=== PATIENT | male | born 1960 | race Caucasian/White ===

== ENCOUNTER 2019-04-21 08:43 | Inpatient (IN) | payer MEDICAID, OTHER, SELFPAY ==
[~2019-04-21] VITALS: Ht 188 cm; Wt 120.7 kg
--- NOTE | 2019-04-21 09:24 | NUR ---
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
[2019-04-21] MEDS ORDERED: SERT-238 PO (09:39)
[2019-04-21] MEDS ORDERED: MIRT15TA94 PO (09:39)
[2019-04-21] MEDS ORDERED: MELO15TA24 PO (09:39)
--- NOTE | 2019-04-21 09:42 | NUR ---
PT HAS CO OF BILATERAL FOOT PAIN. PT REMOVED SHOES AND SOCK. MALODOROUS. PT FEETS ARE RED AND SWOLLEN, BLISTERS AROUND TOES. PT STATES HE HAS HAD THESE SYMPTOMS FOR 2 WEEKS. PT STATES THEY ARE PAINFUL.
[2019-04-21 09:59] LABS: BASOPHILS # (AUTO) 0.08 x10^3/uL (0-0.1); BASOPHILS % (AUTO) 1 % (0-1); EOSINOPHILS # (AUTO) 0.05 x10^3/uL (0-0.4); EOSINOPHILS % (AUTO) 1 % (1-7); LYMPHOCYTES # (AUTO) 1.68 x10^3/uL (1-3.4); LYMPHOCYTES % (AUTO) 17 % (22-44); MD NO; MEAN CORPUSCULAR HEMOGLOBIN 29.6 pg (27.5-34.5); MEAN CORPUSCULAR HGB CONC 32.9 g/dL (33.2-36.2); MEAN CORPUSCULAR VOLUME 90.1 fL (81-97); MEAN PLATELET VOLUME 8.1 fL (7.4-10.4); MONOCYTES # (AUTO) 0.92 x10^3/uL (0.2-0.8); MONOCYTES % (AUTO) 9 % (2-9); NEUTROPHILS # (AUTO) 7.36 x10^3/uL (1.8-6.8); NEUTROPHILS % (AUTO) 73 % (42-75); PLATELET COUNT 237 x10^3/uL (130-400); RED BLOOD COUNT 4.49 x10^6/uL (4.38-5.82); RED CELL DISTRIBUTION WIDTH 13.7 % (9.4-14.8)
[2019-04-21 10:07] LABS: ALBUMIN 3.3 g/dL (3.4-5.0); ANION GAP 6 mmol/L (5-15); CALCIUM 8.3 mg/dL (8.5-10.1); CHLORIDE 108 mmol/L (98-107); CREATININE 1.29 mg/dL (0.7-1.3)
--- NOTE | 2019-04-21 10:40 | NUR ---
PT IS SOAKING FEET IN BASIN
[2019-04-21] MEDS ORDERED: AMPICILLIN/SULBACTAM 3 GM in SODIUM CHLORIDE 0.9% 100 ML IV ONE (11:00)
--- NOTE | 2019-04-21 11:28 | NUR ---
REPORT TO BARBARA
[2019-04-21] MEDS ORDERED: PHARMACOKINETIC MONITORING MC PRN (12:00)
[2019-04-21] MEDS ORDERED: VANCOMYCIN PMX 1GM/200ML 200 ML IV ONE (12:00)
[2019-04-21] MEDS ORDERED: BISACODYL 10 MG SUPP PR PRN (12:00)
[2019-04-21] MEDS ORDERED: morphine SULFATE 10 MG/ML, 1ML IVPush PRN (12:00)
[2019-04-21] MEDS ORDERED: LABETALOL 5MG/ML, 20ML IVPush PRN (12:00)
[2019-04-21] MEDS ORDERED: VANCOMYCIN PER PHARMACY MC PRN (12:00)
[2019-04-21] MEDS ORDERED: ENALAPRILAT 1.25 MG/ML, 2ML IVPush PRN (12:00)
[2019-04-21] MEDS ORDERED: DOCUSATE 100 MG CAPSULE PO PRN (12:00)
[2019-04-21] MEDS ORDERED: ACETAMINOPHEN 325 MG TABLET PO PRN (12:00)
[2019-04-21] MEDS ORDERED: PHARMACOKINETIC CONSULTATION MC ONE (12:00)
[2019-04-21] MEDS ORDERED: POLYETHYLENE GLYCOL 17 GM PACKET PO PRN (12:00)
[2019-04-21] MEDS ORDERED: GABAPENTIN 300 MG CAPSULE PO PRN (12:00)
[2019-04-21] MEDS ORDERED: ONDANSETRON 2MG/ML, 2ML IVPush PRN (12:00)
[2019-04-21 12:21] VITALS: BP 155/79
[2019-04-21 13:02] VITALS: BP 174/83
[2019-04-21] MEDS: ENOXAPARIN 40 MG/0.4 ML SQ SCH (13:26)
[2019-04-21] MEDS: VANCOMYCIN 2,000 MG in SODIUM CHLORIDE 0.9% 500 ML IV SCH (18:29)
[2019-04-21 18:51] VITALS: BP 125/71
[2019-04-22 01:23] VITALS: BP 135/77
[2019-04-22 05:50] LABS: BASOPHILS # (AUTO) 0.01 x10^3/uL (0-0.1); BASOPHILS % (AUTO) 0 % (0-1); EOSINOPHILS # (AUTO) 0.23 x10^3/uL (0-0.4); EOSINOPHILS % (AUTO) 3 % (1-7); LYMPHOCYTES # (AUTO) 1.45 x10^3/uL (1-3.4); LYMPHOCYTES % (AUTO) 21 % (22-44); MD NO; MEAN CORPUSCULAR HEMOGLOBIN 30.1 pg (27.5-34.5); MEAN CORPUSCULAR HGB CONC 32.5 g/dL (33.2-36.2); MEAN CORPUSCULAR VOLUME 92.7 fL (81-97); MEAN PLATELET VOLUME 8.6 fL (7.4-10.4); MONOCYTES # (AUTO) 0.41 x10^3/uL (0.2-0.8); MONOCYTES % (AUTO) 6 % (2-9); NEUTROPHILS # (AUTO) 4.99 x10^3/uL (1.8-6.8); NEUTROPHILS % (AUTO) 70 % (42-75); PLATELET COUNT 190 x10^3/uL (130-400); RED BLOOD COUNT 4.49 x10^6/uL (4.38-5.82); RED CELL DISTRIBUTION WIDTH 13.8 % (9.4-14.8)
[2019-04-22 06:02] LABS: ALBUMIN 2.8 g/dL (3.4-5.0); ANION GAP 4 mmol/L (5-15); CALCIUM 7.8 mg/dL (8.5-10.1); CHLORIDE 110 mmol/L (98-107)
[2019-04-22 06:07] LABS: ALANINE AMINOTRANSFERASE 21 U/L (12-78); ALKALINE PHOSPHATASE 76 U/L (45-117); BILIRUBIN,TOTAL 0.6 mg/dL (0.2-1.0); CREATININE 0.98 mg/dL (0.7-1.3); TOTAL PROTEIN 6.8 g/dL (6.4-8.2)
[2019-04-22] MEDS: VANCOMYCIN 2,000 MG in SODIUM CHLORIDE 0.9% 500 ML IV SCH ×2 (06:12→17:30)
[2019-04-22 06:55] VITALS: BP 134/80
[2019-04-22] MEDS: ENOXAPARIN 40 MG/0.4 ML SQ SCH (11:52)
[2019-04-22 13:00] VITALS: BP 131/77
[2019-04-22] MEDS: AMPICILLIN/SULBACTAM 3 GM in SODIUM CHLORIDE 0.9% 100 ML IV SCH ×2 (16:39→22:48)
[2019-04-22] MEDS ORDERED: LORazepam 2 MG/ML, 1ML IVPush PRN (17:30)
[2019-04-22] MEDS ORDERED: CALCIUM GLUCONATE 4.6 MEQ in SODIUM CHLORIDE 0.9% 50 ML IV ONE (17:30)
[2019-04-22 18:40] VITALS: BP 126/78
[2019-04-23 01:31] VITALS: BP 118/75
[2019-04-23] MEDS: AMPICILLIN/SULBACTAM 3 GM in SODIUM CHLORIDE 0.9% 100 ML IV SCH ×4 (05:23→23:07)
[2019-04-23 05:45] LABS: INTERNATIONAL NORMALIZED RATIO 1.04 (0.93-1.1); PROTHROMBIN TIME 10.9 Seconds (9.6-11.5)
[2019-04-23 05:49] LABS: ANION GAP 5 mmol/L (5-15); CALCIUM 7.8 mg/dL (8.5-10.1); CHLORIDE 110 mmol/L (98-107); CREATININE 0.94 mg/dL (0.7-1.3)
[2019-04-23] MEDS: VANCOMYCIN 2,000 MG in SODIUM CHLORIDE 0.9% 500 ML IV SCH (06:27)
[2019-04-23 07:10] VITALS: BP 124/75
[2019-04-23] MEDS ORDERED: POTASSIUM PHOSPHATE 44 MEQ in SODIUM CHLORIDE 0.9% 500 ML IV ONE (11:30)
[2019-04-23] MEDS ORDERED: MAGNESIUM SULFATE PMX 2GM/50ML 50 ML IV ONE (11:30)
[2019-04-23 11:35] LABS: HEMOGLOBIN A1C 5.8 % (4.2-6.3)
[2019-04-23] MEDS: ENOXAPARIN 40 MG/0.4 ML SQ SCH (12:00)
[2019-04-23] MEDS ORDERED: MIDAZOLAM 1 MG/ML, 2ML ONE (13:11)
[2019-04-23] MEDS ORDERED: FENTANYL PF 250 MCG/5ML ONE (13:11)
[2019-04-23] MEDS ORDERED: SUCCINYLCHOLINE 20 MG/ML, 10ML ONE (13:28)
[2019-04-23] MEDS ORDERED: PHENYLEPHRINE 10 MG/ML ONE (13:28)
[2019-04-23] MEDS ORDERED: KETOROLAC 30 MG/1 ML ONE (13:28)
[2019-04-23] MEDS ORDERED: ONDANSETRON 2MG/ML, 2ML ONE (13:28)
[2019-04-23] MEDS ORDERED: PROPOFOL 10 MG/ML, 20ML ONE (13:28)
[2019-04-23] MEDS ORDERED: DEXAMETHASONE 4 MG/ML, 1ML ONE (13:28)
[2019-04-23] MEDS ORDERED: hydrALAzine 20 MG/ML, 1ML IV PRN (13:30)
[2019-04-23] MEDS ORDERED: MEPERIDINE/PF 25MG/ML,1ML IVPush PRN (13:30)
[2019-04-23] MEDS ORDERED: ACETAMINOPHEN 325 MG TABLET PO PRN (13:30)
[2019-04-23] MEDS ORDERED: FENTANYL PF 100 MCG/2ML IV PRN (13:30)
[2019-04-23] MEDS ORDERED: OXYcodone 5 MG/5 ML ORAL.SOL UDC PO PRN (13:30)
[2019-04-23] MEDS ORDERED: HYDROmorphone 2 MG/ML, 1ML IVPush PRN (13:30)
[2019-04-23] MEDS ORDERED: LABETALOL 5MG/ML, 20ML IV PRN (13:30)
[2019-04-23] MEDS ORDERED: PROMETHAZINE 25 MG/ML, 1ML IV PRN (13:30)
[2019-04-23] MEDS ORDERED: HALOPERIDOL 5 MG/ML IV PRN (13:30)
[2019-04-23] MEDS ORDERED: OXYcodone 5 MG/5 ML ORAL.SOL UDC ONE (14:20)
[2019-04-23 15:04] VITALS: BP 122/75
[2019-04-23 19:13] VITALS: BP 118/71
[2019-04-23] MEDS: TRAZODONE 50MG TABLET PO PRN (21:08)
[2019-04-24 02:16] VITALS: BP 114/70
[2019-04-24] MEDS: TRAZODONE 50MG TABLET PO PRN ×2 (03:56→21:21)
[2019-04-24] MEDS: AMPICILLIN/SULBACTAM 3 GM in SODIUM CHLORIDE 0.9% 100 ML IV SCH ×4 (05:13→23:17)
[2019-04-24 05:41] LABS: BASOPHILS # (AUTO) 0.01 x10^3/uL (0-0.1); BASOPHILS % (AUTO) 0 % (0-1); EOSINOPHILS # (AUTO) 0.06 x10^3/uL (0-0.4); EOSINOPHILS % (AUTO) 1 % (1-7); LYMPHOCYTES # (AUTO) 0.62 x10^3/uL (1-3.4); LYMPHOCYTES % (AUTO) 8 % (22-44); MD NO; MEAN CORPUSCULAR HEMOGLOBIN 30.2 pg (27.5-34.5); MEAN CORPUSCULAR HGB CONC 32.6 g/dL (33.2-36.2); MEAN CORPUSCULAR VOLUME 92.5 fL (81-97); MEAN PLATELET VOLUME 9.1 fL (7.4-10.4); MONOCYTES # (AUTO) 0.23 x10^3/uL (0.2-0.8); MONOCYTES % (AUTO) 3 % (2-9); NEUTROPHILS # (AUTO) 7.07 x10^3/uL (1.8-6.8); NEUTROPHILS % (AUTO) 88 % (42-75); PLATELET COUNT 190 x10^3/uL (130-400); RED BLOOD COUNT 4.01 x10^6/uL (4.38-5.82); RED CELL DISTRIBUTION WIDTH 14.2 % (9.4-14.8)
[2019-04-24 05:48] LABS: ALANINE AMINOTRANSFERASE 18 U/L (12-78); ALBUMIN 2.6 g/dL (3.4-5.0); ANION GAP 3 mmol/L (5-15); CALCIUM 8.1 mg/dL (8.5-10.1); CHLORIDE 106 mmol/L (98-107); CREATININE 1.02 mg/dL (0.7-1.3)
[2019-04-24 05:50] LABS: ALKALINE PHOSPHATASE 72 U/L (45-117); BILIRUBIN,TOTAL 0.4 mg/dL (0.2-1.0); TOTAL PROTEIN 6.7 g/dL (6.4-8.2); VANCOMYCIN,RANDOM 15.3 mcg/mL
[2019-04-24] MEDS ORDERED: VANCOMYCIN 2,000 MG in SODIUM CHLORIDE 0.9% 500 ML IV ONE (06:30)
[2019-04-24 07:22] VITALS: BP 120/71
[2019-04-24] MEDS: ENOXAPARIN 40 MG/0.4 ML SQ SCH (11:05)
[2019-04-24 13:24] VITALS: BP 113/71
[2019-04-24 19:07] VITALS: BP 146/78
[2019-04-24] MEDS: MAGNESIUM OXIDE 400 MG TABLET PO SCH (21:20)
[2019-04-25 00:14] VITALS: BP 131/78
[2019-04-25] MEDS: AMPICILLIN/SULBACTAM 3 GM in SODIUM CHLORIDE 0.9% 100 ML IV SCH ×4 (04:51→22:47)
[2019-04-25 05:48] LABS: ANION GAP 3 mmol/L (5-15); CALCIUM 8.3 mg/dL (8.5-10.1); CHLORIDE 109 mmol/L (98-107); CREATININE 0.99 mg/dL (0.7-1.3)
[2019-04-25 05:55] LABS: BASOPHILS % (AUTO) 0 % (0-1); EOSINOPHILS # (AUTO) 0.12 x10^3/uL (0-0.4); EOSINOPHILS % (AUTO) 1 % (1-7); LYMPHOCYTES % (AUTO) 29 % (22-44); MD NO; MEAN CORPUSCULAR HEMOGLOBIN 30.1 pg (27.5-34.5); MEAN CORPUSCULAR HGB CONC 33.1 g/dL (33.2-36.2); MEAN CORPUSCULAR VOLUME 90.7 fL (81-97); MEAN PLATELET VOLUME 9.3 fL (7.4-10.4); MONOCYTES # (AUTO) 0.47 x10^3/uL (0.2-0.8); MONOCYTES % (AUTO) 6 % (2-9); NEUTROPHILS # (AUTO) 5.41 x10^3/uL (1.8-6.8); NEUTROPHILS % (AUTO) 64 % (42-75); PLATELET COUNT 186 x10^3/uL (130-400); RED BLOOD COUNT 4.05 x10^6/uL (4.38-5.82); RED CELL DISTRIBUTION WIDTH 13.9 % (9.4-14.8)
[2019-04-25 07:40] VITALS: BP 132/77
[2019-04-25] MEDS: MAGNESIUM OXIDE 400 MG TABLET PO SCH ×2 (10:53→19:49)
[2019-04-25] MEDS: ENOXAPARIN 40 MG/0.4 ML SQ SCH (10:59)
[2019-04-25 13:56] VITALS: BP 118/70
[2019-04-25 20:46] VITALS: BP 130/70
[2019-04-25] MEDS: TRAZODONE 50MG TABLET PO PRN (22:46)
[2019-04-26 03:02] VITALS: BP 119/77
[2019-04-26] MEDS: AMPICILLIN/SULBACTAM 3 GM in SODIUM CHLORIDE 0.9% 100 ML IV SCH ×4 (04:53→23:15)
[2019-04-26 06:45] VITALS: BP 131/84
[2019-04-26] MEDS: MAGNESIUM OXIDE 400 MG TABLET PO SCH ×2 (10:35→19:33)
[2019-04-26] MEDS: ENOXAPARIN 40 MG/0.4 ML SQ SCH (12:00)
[2019-04-26 12:09] VITALS: BP 117/78
[2019-04-26 19:20] VITALS: BP 118/76
[2019-04-26] MEDS: TRAZODONE 50MG TABLET PO PRN (19:32)
[2019-04-27 00:17] VITALS: BP 133/77
[2019-04-27] MEDS: AMPICILLIN/SULBACTAM 3 GM in SODIUM CHLORIDE 0.9% 100 ML IV SCH ×2 (04:56→11:00)
[2019-04-27 07:34] VITALS: BP 143/74
[2019-04-27] MEDS: MAGNESIUM OXIDE 400 MG TABLET PO SCH (09:48)
[2019-04-27] MEDS: ENOXAPARIN 40 MG/0.4 ML SQ SCH (12:00)
[2019-04-27 13:10] VITALS: BP 140/71
[2019-04-27] MEDS ORDERED: AMOX1TAB12 PO (15:11)
[2019-04-27] MEDS ORDERED: ACID1TAB7 PO (15:11)
[2019-04-27] MEDS ORDERED: LACTOBACILLUS CHEW TABLET PO SCH (16:00)
[2019-04-27] MEDS ORDERED: AMOXICILLIN/CLAV 875-125MG TABLET PO SCH (21:00)
== END 2019-04-27 16:34 | disposition home or self-care (01) | DRG 504 ==
LOC: ED 10:53 → EDIP 10:54 → ED 10:57 → SUATTDRO 11:12 → 3N 12:14 → DCLOUNGE 04-27 16:30
PROVIDERS: ADMIT Internal Medicine; ATTEND Internal Medicine
PROC: 0Y6U0Z1 Detachment at Left 3rd Toe, High, Open Approach (ICD-10-PCS; principal; 2019-04-23 14:00)
DX: M86.8X7 Other osteomyelitis, ankle and foot (principal); F10.239 Alcohol dependence with withdrawal, unspecified; L03.115 Cellulitis of right lower limb; L03.116 Cellulitis of left lower limb; E83.39 Other disorders of phosphorus metabolism; F12.90 Cannabis use, unspecified, uncomplicated; F39 Unspecified mood [affective] disorder; F51.04 Psychophysiologic insomnia; I10 Essential (primary) hypertension; L03.031 Cellulitis of right toe; M10.9 Gout, unspecified; M19.90 Unspecified osteoarthritis, unspecified site; S90.821A Blister (nonthermal), right foot, initial encounter; S90.822A Blister (nonthermal), left foot, initial encounter; Z59.0 Homelessness; Z80.3 Family history of malignant neoplasm of breast
CPT/HCPCS: 36415; 80048; 80053; 80202; 82040; 82330; 83036; 83735; 84100; 85025; 85610; 87040; 88305; 88311; 99285; G0378; J0295; J0610; J1100; J1650; J1885; J2250; J2405; J2704; J3010; J3370; J0330; J2060; J2370; J3475; J7040

== ENCOUNTER 2019-04-29 14:01 | Emergency (ER) | payer SELFPAY ==
[~2019-04-29] VITALS: Ht 188 cm; Wt 115.1 kg
[~2019-04-29 14:01] MED LIST: ACID1TAB7 PO; AMOX1TAB12 PO; MELO15TA24 PO; MIRT15TA94 PO; SERT-238 PO
[2019-04-29 15:16] VITALS: BP 125/60
--- NOTE | 2019-04-29 15:20 | NUR ---
DR. ANDERSON TO BS.
[2019-04-29 15:56] LABS: BASOPHILS # (AUTO) 0.02 x10^3/uL (0-0.1); BASOPHILS % (AUTO) 0 % (0-1); EOSINOPHILS # (AUTO) 0.12 x10^3/uL (0-0.4); EOSINOPHILS % (AUTO) 2 % (1-7); LYMPHOCYTES # (AUTO) 2.84 x10^3/uL (1-3.4); LYMPHOCYTES % (AUTO) 45 % (22-44); MD NO; MEAN CORPUSCULAR HEMOGLOBIN 30.2 pg (27.5-34.5); MEAN CORPUSCULAR HGB CONC 32.7 g/dL (33.2-36.2); MEAN CORPUSCULAR VOLUME 92.3 fL (81-97); MEAN PLATELET VOLUME 8.6 fL (7.4-10.4); MONOCYTES # (AUTO) 0.45 x10^3/uL (0.2-0.8); MONOCYTES % (AUTO) 7 % (2-9); NEUTROPHILS % (AUTO) 46 % (42-75); PLATELET COUNT 269 x10^3/uL (130-400); RED BLOOD COUNT 4.67 x10^6/uL (4.38-5.82); RED CELL DISTRIBUTION WIDTH 14.7 % (9.4-14.8)
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
[2019-04-29 16:03] LABS: ALANINE AMINOTRANSFERASE 25 U/L (12-78); ALBUMIN 3.3 g/dL (3.4-5.0); ANION GAP 6 mmol/L (5-15); CALCIUM 8.6 mg/dL (8.5-10.1); CHLORIDE 109 mmol/L (98-107); CREATININE 1.28 mg/dL (0.7-1.3); SALICYLATE LEVEL < 1.7 mg/dL (2.8-20.0)
[2019-04-29 16:13] LABS: ALKALINE PHOSPHATASE 73 U/L (45-117); BILIRUBIN,TOTAL 0.3 mg/dL (0.2-1.0); TOTAL PROTEIN 8.1 g/dL (6.4-8.2)
--- NOTE | 2019-04-29 16:30 | NUR ---
PT RE-EDUCATED REGARDING NEEDING UA. PT STATES HE HAS SUICIDAL IDEATION AT TIMES. PT STATES "I HAVE LOTS OF PLANS." PT ON REG. NALDO. ALL SAFETY MEASURES OBTAINED.
--- NOTE | 2019-04-29 17:12 | NUR ---
PT RESTING ON HOSP BED. AWAITING UA. DIET TRAY DELIVERED. NADN. ALL SAFETY MEASURES OBTAINED. WILL CONTINUE TO MONITOR.
--- NOTE | 2019-04-29 17:44 | NUR ---
PT REFUSED DIET TRAY. PT RESTING ON GURNEY. NADN. ALL SAFETY MEASURES OBATAINED. WILL CONTINUE TO MONITOR.
--- NOTE | 2019-04-29 18:06 | NUR ---
pt ambulatory with steady gait to bathroom. pt given ua cup
--- NOTE | 2019-04-29 18:13 | NUR ---
ua to lab
[2019-04-29 18:45] LABS: AMPHETAMINE SCREEN, URINE Negative (Negative); BARBITURATE SCREEN, URINE Negative (Negative); BENZODIAZEPINE SCREEN, URINE Negative (Negative); CANNABINOID SCREEN, URINE Positive (Negative); COCAINE SCREEN, URINE Negative (Negative); METHADONE SCREEN, URINE Negative (Negative); OPIATE SCREEN, URINE Negative (Negative)
--- NOTE | 2019-04-29 18:52 | NUR ---
BEDSIDE REPORT TO HIPOLITO Arias RN AND PILAR ALEJANDRE.
--- NOTE | 2019-04-29 19:01 | NUR ---
ASSUMED CARE FOR THIS PT AND SITTER AT BEDSIDE IN NO DISTRESS IN SECURE ROOM
--- NOTE | 2019-04-29 19:46 | NUR ---
SOC CALLED [facility] AT BEDSIDE.
--- NOTE | 2019-04-29 22:36 | NUR ---
AWAITING ERP DC PAPER WORK FOR [facility].
== END 2019-04-29 23:09 | disposition home or self-care (01) ==
LOC: ED 17:03
DX: F10.229 Alcohol dependence with intoxication, unspecified (principal); R45.851 Suicidal ideations; F32.9 Major depressive disorder, single episode, unspecified; Z59.0 Homelessness; Y90.9 Presence of alcohol in blood, level not specified
CPT/HCPCS: 36415; 80053; 80307; 84443; 85025; 99283; 99284

== ENCOUNTER 2019-12-12 16:23 | Emergency (ER) | payer MEDICAID ==
[~2019-12-12] VITALS: Ht 188 cm; Wt 115.0 kg
[~2019-12-12 16:23] MED LIST changes: +SERT50TA PO
[2019-12-12 17:53] LABS: BASOPHILS # (AUTO) 0.04 x10^3/uL (0-0.1); BASOPHILS % (AUTO) 0 % (0-1); EOSINOPHILS % (AUTO) 1 % (1-7); LYMPHOCYTES # (AUTO) 2.27 x10^3/uL (1-3.4); LYMPHOCYTES % (AUTO) 19 % (22-44); MD NO; MEAN CORPUSCULAR HEMOGLOBIN 27.6 pg (27.5-34.5); MEAN CORPUSCULAR VOLUME 86.1 fL (81-97); MEAN PLATELET VOLUME 7.5 fL (7.4-10.4); MONOCYTES # (AUTO) 0.61 x10^3/uL (0.2-0.8); MONOCYTES % (AUTO) 5 % (2-9); NEUTROPHILS # (AUTO) 9.25 x10^3/uL (1.8-6.8); NEUTROPHILS % (AUTO) 75 % (42-75); PLATELET COUNT 268 x10^3/uL (130-400); RED BLOOD COUNT 4.58 x10^6/uL (4.38-5.82); RED CELL DISTRIBUTION WIDTH 12.9 % (9.4-14.8)
[2019-12-12 18:01] LABS: ALANINE AMINOTRANSFERASE 28 U/L (12-78); ALBUMIN 3.6 g/dL (3.4-5.0); ANION GAP 8 mmol/L (5-15); CALCIUM 8.3 mg/dL (8.5-10.1); CHLORIDE 104 mmol/L (98-107); CREATININE 1.46 mg/dL (0.7-1.3)
[2019-12-12 18:04] LABS: ALKALINE PHOSPHATASE 80 U/L (45-117); BILIRUBIN,TOTAL 0.4 mg/dL (0.2-1.0); TOTAL PROTEIN 7.6 g/dL (6.4-8.2)
--- NOTE | 2019-12-12 18:05 | NUR ---
Pt to room from lobby.
--- NOTE | 2019-12-12 18:40 | NUR ---
JUST RECOVERING FROM OSTEO. FINISHED ABX 2 DAYS AGO. LEFT FOOT IS BLEEDING AND IS PAINFUL. ALSO, PT STATES THERE WAS BLOOD WHEN HE WIPED HIS BUTT AFTER A BM NO A DRINKER, NO BLOOD THINNERS, DOES TAKE MOBIC AND MOTRIN REPORTS STOOLS HAVE BEEN BLACK LATELY GOOD COLOR, VSS, AFEBRILE LEFT FOOT MILDLY SWOLLEN, NOT RED
[2019-12-12 18:56] VITALS: BP 151/81
[2019-12-12 19:07] LABS: C-REACTIVE PROTEIN, QUANT 1.1 mg/dL (0.02-0.49)
[2019-12-12] MEDS ORDERED: NEOSPORIN OINT. PKT 1 PACKET ONE (19:21)
--- NOTE | 2019-12-12 19:28 | NUR ---
WOUNDS CLEANSED/DRESSED WITH NEOSPORIN DRESSING
[2019-12-12] MEDS ORDERED: COLCHICINE 0.6 MG CAPSULE PO ONE (21:00)
== END 2019-12-12 21:18 | disposition home or self-care (01) ==
LOC: ED 21:01
DX: M79.675 Pain in left toe(s) (principal)
CPT/HCPCS: 36415; 80053; 84550; 85025; 85651; 86140; 99284

== ENCOUNTER 2020-07-18 07:34 | Emergency (ER) | payer MEDICAID ==
[~2020-07-18] VITALS: Ht 188 cm; Wt 122.7 kg
[2020-07-18 07:38] VITALS: BP 142/80
--- NOTE | 2020-07-18 07:45 | NUR ---
PATIENT WALKED BACK FROM TRIAGE WITH CHIEF C/O COUGH. PATIENT STATES "I DON'T FEEL GOOD AND MY LUNGS HURT." PATIENT REPORTS SYMPTOMS STARTED YESTERDAY. PATIENT DENIES FEVER, DENIES N/V/D. MARJAN HITCHCOCK, CALL LIGHT WITHIN REACH.
--- NOTE | 2020-07-18 07:57 | NUR ---
ER PROVIDER AT BEDSIDE FOR EVALUATION.
--- NOTE | 2020-07-18 08:08 | NUR ---
X-RAY AT BEDSIDE.
--- NOTE | 2020-07-18 08:45 | NUR ---
Patient given discharge instructions and prescriptions and they have confirmed that they understand the instructions. All patient belongings gathered and taken with patient. Patient stable and ambulatory with steady gait from ED.
== END 2020-07-18 08:46 | disposition home or self-care (01) ==
LOC: ED 08:35
DX: J06.9 Acute upper respiratory infection, unspecified (principal); Z20.822 Contact with and (suspected) exposure to COVID-19; R06.02 Shortness of breath; R05 Cough; R09.81 Nasal congestion; M79.10 Myalgia, unspecified site; M19.90 Unspecified osteoarthritis, unspecified site
CPT/HCPCS: 71045; 87635; 99284

== ENCOUNTER 2020-08-22 22:31 | Emergency (ER) | payer MEDICAID ==
[~2020-08-22] VITALS: Ht 188 cm; Wt 120.2 kg
[2020-08-23] MEDS ORDERED: FAMOTIDINE 20 MG TABLET PO ONE
[2020-08-23] MEDS ORDERED: ONDANSETRON ODT 4 MG PO ONE
[2020-08-23] MEDS ORDERED: ACETAMINOPHEN 500 MG TABLET PO ONE
[2020-08-23 00:12] LABS: BASOPHILS % (AUTO) 1 % (0-1); EOSINOPHILS % (AUTO) 5 % (1-7); LYMPHOCYTES % (AUTO) 19 % (22-44); MEAN CORPUSCULAR HEMOGLOBIN 28.1 pg (27.5-34.5); MEAN CORPUSCULAR HGB CONC 33.4 g/dL (33.2-36.2); MEAN PLATELET VOLUME 7.9 fL (7.4-10.4); MONOCYTES % (AUTO) 9 % (2-9); NEUTROPHILS % (AUTO) 67 % (42-75); PLATELET COUNT 271 x10^3/uL (130-400); RED BLOOD COUNT 4.49 x10^6/uL (4.38-5.82); RED CELL DISTRIBUTION WIDTH 13.2 % (9.4-14.8)
[2020-08-23] MEDS ORDERED: ONDANSETRON ODT 4 MG ONE (00:21)
[2020-08-23] MEDS ORDERED: FAMOTIDINE 20 MG TABLET ONE (00:21)
[2020-08-23] MEDS ORDERED: ACETAMINOPHEN 500 MG TABLET ONE (00:21)
[2020-08-23 00:24] LABS: ALBUMIN 3.2 g/dL (3.4-5.0); ANION GAP 6 mmol/L (5-15); CALCIUM 8.3 mg/dL (8.5-10.1); CHLORIDE 110 mmol/L (98-107)
[2020-08-23 00:27] LABS: ALANINE AMINOTRANSFERASE 15 U/L (12-78); ALKALINE PHOSPHATASE 89 U/L (45-117); BILIRUBIN,TOTAL 0.5 mg/dL (0.2-1.0); CREATININE 1.53 mg/dL (0.7-1.3); MD NO; TOTAL PROTEIN 7.1 g/dL (6.4-8.2)
[2020-08-23 01:10] VITALS: BP 120/69
== END 2020-08-23 02:25 | disposition home or self-care (01) ==
LOC: ED 08-23 00:44
DX: K52.9 Noninfective gastroenteritis and colitis, unspecified (principal); R10.84 Generalized abdominal pain; R11.2 Nausea with vomiting, unspecified
CPT/HCPCS: 36415; 80053; 83605; 83690; 85025; 99284; Q0162

== ENCOUNTER 2020-10-11 20:05 | Emergency (ER) | payer MEDICAID ==
[~2020-10-11] VITALS: Ht 188 cm; Wt 118.0 kg
--- NOTE | 2020-10-11 20:16 | NUR ---
BIB [facility] FROM HOME. PT RELAPSE ETOH X2 WEEKS. ONE EPISODE COFFEE GROUND EMESIS. 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 PT STATES HAD NOT HAD ANY ETOH SINCE JUN 19 UP UNTIL 2 WEEKS AGO. PT CONNECTED TO MONITORING. CALL LIGHT IN REACH. FALL PRECAUTIONS IN PLACE. REPORT GIVEN TO PRIMARY RN.
--- NOTE | 2020-10-11 20:21 | NUR ---
Report received and care assumed.
--- NOTE | 2020-10-11 20:25 | NUR ---
PT BEING TREATED FOR OSTEOMYLITIS OF LEFT FOOT. LEFT FOOT IN SOFT WALKING SHOE.
--- NOTE | 2020-10-11 20:35 | NUR ---
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 Pt states he feels comfortable temperature-crowell and declined a blanket. Call light in reach and pt watching TV for distraction. Pt states pain in L foot and R shoulder are 6/10 and chronic pain issues for him.
--- NOTE | 2020-10-11 20:46 | NUR ---
MD at bedside for exam now.
--- NOTE | 2020-10-11 21:14 | NUR ---
No orders present since MD entered room for exam. Request for orders made via communication bar on EasyView screen of We.
[2020-10-11] MEDS ORDERED: LORazepam 1MG TABLET PO ONE (21:30)
[2020-10-11] MEDS ORDERED: THIAMINE 100MG TABLET PO ONE (21:30)
[2020-10-11] MEDS ORDERED: THIAMINE 100MG TABLET ONE (21:44)
[2020-10-11] MEDS ORDERED: LORazepam 1MG TABLET ONE (21:45)
--- NOTE | 2020-10-11 21:48 | NUR ---
PO medication given as ordered without issue. Lab already rafa blood per pt. VS reassessed.
[2020-10-11 21:54] LABS: BASOPHILS % (AUTO) 1 % (0-1); EOSINOPHILS % (AUTO) 1 % (1-7); LYMPHOCYTES % (AUTO) 17 % (22-44); MEAN CORPUSCULAR HEMOGLOBIN 27.4 pg (27.5-34.5); MEAN CORPUSCULAR HGB CONC 32.9 g/dL (33.2-36.2); MEAN PLATELET VOLUME 7.8 fL (7.4-10.4); MONOCYTES % (AUTO) 6 % (2-9); NEUTROPHILS % (AUTO) 76 % (42-75); PLATELET COUNT 283 x10^3/uL (130-400); RED BLOOD COUNT 5.28 x10^6/uL (4.38-5.82); RED CELL DISTRIBUTION WIDTH 14.8 % (9.4-14.8)
[2020-10-11 21:58] LABS: MD NO
--- NOTE | 2020-10-11 22:00 | NUR ---
REPORT RECEIVED FROM KERON QUEZADA. ASSUMING CARE AT THIS TIME.
--- NOTE | 2020-10-11 22:00 | NUR ---
Report given to PILAR Fuentes, and care transferred. RN notified of recent medical affairs manager and recent updated VS. Awaiting lab results.
[2020-10-11 22:02] LABS: ALANINE AMINOTRANSFERASE 22 U/L (12-78); ALBUMIN 3.5 g/dL (3.4-5.0); ANION GAP 13 mmol/L (5-15); CALCIUM 8.5 mg/dL (8.5-10.1); CHLORIDE 108 mmol/L (98-107); CREATININE 1.18 mg/dL (0.7-1.3)
[2020-10-11 22:04] LABS: ALKALINE PHOSPHATASE 99 U/L (45-117); BILIRUBIN,TOTAL 0.5 mg/dL (0.2-1.0); TOTAL PROTEIN 7.6 g/dL (6.4-8.2)
--- NOTE | 2020-10-11 22:06 | NUR ---
ALL RESULTS ARE BACK AT THIS TIME. CHART UP FOR RECHECK.
--- NOTE | 2020-10-11 22:11 | NUR ---
REPORT GIVEN TO LUCERO QUEZADA.
--- NOTE | 2020-10-11 22:22 | NUR ---
PT RESTING ON GURNEY W/ CALL LIGHT IN REACH AND SIDE RAILS UPX2. RESP EVEN AND UNLABORED, LALIN. AWAITING RECHECK.
[2020-10-11] MEDS ORDERED: PROMETHAZINE 25 MG/ML, 1ML ONE (22:25)
--- NOTE | 2020-10-11 22:29 | NUR ---
PT MEDICATED W/ 25MG PHENERGAN IM PER VERBAL ORDER.
[2020-10-11] MEDS ORDERED: PROMETHAZINE 25 MG/ML, 1ML IM ONE (23:00)
[2020-10-11] MEDS ORDERED: ONDANSETRON ODT 8 MG ONE (23:57)
[2020-10-12] MEDS ORDERED: ONDANSETRON ODT 8 MG PO ONE
[2020-10-12 00:41] VITALS: BP 147/90
--- NOTE | 2020-10-12 00:53 | NUR ---
Darron penny in [facility] - 10/12/20 at 0054 by YAJAIRA Patient given discharge instructions and they have confirmed that they understand the instructions. Patient ambulatory with steady gait. Pt provided w/ taxi voucher to [place] per pt request.
--- NOTE | 2020-10-12 00:54 | NUR ---
Patient given discharge instructions and they have confirmed that they understand the instructions. Patient ambulatory with steady gait. Pt provided w/ taxi voucher to [place] per pt request.
== END 2020-10-12 00:56 | disposition home or self-care (01) ==
LOC: ED 20:32
DX: F10.139 Alcohol abuse with withdrawal, unspecified (principal); M19.90 Unspecified osteoarthritis, unspecified site; Y90.0 Blood alcohol level of less than 20 mg/100 ml
CPT/HCPCS: 36415; 80053; 85025; 96372; 99285; J2550; Q0162

== ENCOUNTER 2020-11-18 12:51 | Inpatient (IN) | payer MEDICAID ==
[~2020-11-18] VITALS: Ht 188 cm; Wt 128.7 kg
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
[2020-11-18 14:18] LABS: ALBUMIN 3.8 g/dL (3.4-5.0); ANION GAP 9 mmol/L (5-15); CALCIUM 8.9 mg/dL (8.5-10.1); CHLORIDE 109 mmol/L (98-107)
[2020-11-18 14:20] LABS: BASOPHILS % (AUTO) 0 % (0-1); EOSINOPHILS % (AUTO) 4 % (1-7); LYMPHOCYTES % (AUTO) 23 % (22-44); MEAN CORPUSCULAR HEMOGLOBIN 28.3 pg (27.5-34.5); MEAN CORPUSCULAR HGB CONC 33.6 g/dL (33.2-36.2); MEAN PLATELET VOLUME 8.9 fL (7.4-10.4); MONOCYTES % (AUTO) 8 % (2-9); NEUTROPHILS % (AUTO) 66 % (42-75); PLATELET COUNT 206 x10^3/uL (130-400); RED BLOOD COUNT 4.68 x10^6/uL (4.38-5.82); RED CELL DISTRIBUTION WIDTH 15.5 % (9.4-14.8)
--- NOTE | 2020-11-18 14:30 | NUR ---
PT RESTING IN [place] COMFORTABLY. CALL LIGHT WITHIN REACH.
--- NOTE | 2020-11-18 15:30 | NUR ---
PT RESTING IN [facility] COMFORTABLY. CALL LIGHT WITHIN REACH. AWAITING RECORDS FROM REHAB FACILITY.
--- NOTE | 2020-11-18 16:30 | NUR ---
PT RESTING IN [place] COMFORTABLY. CALL LIGHT WITHIN REACH. ALL NEEDS ADDRESSED.
--- NOTE | 2020-11-18 17:30 | NUR ---
PT AMBULATED TO RESTROOM.
--- NOTE | 2020-11-18 18:02 | NUR ---
ADMITTING MD AT BEDSIDE
--- NOTE | 2020-11-18 18:30 | NUR ---
REPORT GIVEN TO MARIANA PEÑA RN.
[2020-11-18] MEDS ORDERED: PHARMACY MAY ADJ FOR RENAL FX MC PRN (19:30)
[2020-11-18] MEDS ORDERED: TEMAZEPAM 15 MG CAPSULE PO PRN (19:30)
[2020-11-18] MEDS ORDERED: DOCUSATE 100 MG CAPSULE PO PRN (19:30)
[2020-11-18] MEDS ORDERED: MELATONIN 5 MG TABLET PO PRN (19:30)
[2020-11-18] MEDS ORDERED: GABAPENTIN 300 MG CAPSULE PO PRN (19:30)
[2020-11-18] MEDS: HEPARIN 5,000 UNITS/ML, 1ML SQ SCH (21:38)
[2020-11-18] MEDS: SODIUM CHLORIDE 0.9% 1,000 ML IV SCH (21:38)
[2020-11-18] MEDS ORDERED: PHARMACOKINETIC MONITORING MC PRN (23:45)
[2020-11-19] MEDS ORDERED: CATHFLO-ALTEPLASE 2 MG/2 ML CATHFLUSH ONE
[2020-11-19] MEDS ORDERED: VANCOMYCIN PER PHARMACY MC PRN
[2020-11-19] MEDS: VANCOMYCIN 50 MG/ML ORAL SUSP PO SCH ×3 (00:03→12:32)
[2020-11-19 00:35] VITALS: BP 120/51
[2020-11-19] MEDS ORDERED: VANCOMYCIN 2,000 MG in SODIUM CHLORIDE 0.9% 500 ML IV ONE (02:00)
[2020-11-19] MEDS: HEPARIN 5,000 UNITS/ML, 1ML SQ SCH ×2 (06:02→14:06)
[2020-11-19 06:37] LABS: BASOPHILS % (AUTO) 1 % (0-1); EOSINOPHILS % (AUTO) 8 % (1-7); LYMPHOCYTES % (AUTO) 25 % (22-44); MEAN CORPUSCULAR HEMOGLOBIN 27.9 pg (27.5-34.5); MEAN CORPUSCULAR HGB CONC 33.2 g/dL (33.2-36.2); MONOCYTES % (AUTO) 9 % (2-9); NEUTROPHILS % (AUTO) 58 % (42-75); PLATELET COUNT 192 x10^3/uL (130-400); RED BLOOD COUNT 4.71 x10^6/uL (4.38-5.82); RED CELL DISTRIBUTION WIDTH 15.8 % (9.4-14.8)
[2020-11-19 06:41] VITALS: BP 140/81
[2020-11-19 06:42] LABS: ALBUMIN 3.2 g/dL (3.4-5.0); ANION GAP 7 mmol/L (5-15); CALCIUM 8.9 mg/dL (8.5-10.1); CHLORIDE 110 mmol/L (98-107)
[2020-11-19 06:46] LABS: ALANINE AMINOTRANSFERASE 18 U/L (12-78); ALKALINE PHOSPHATASE 75 U/L (45-117); BILIRUBIN,TOTAL 0.6 mg/dL (0.2-1.0); TOTAL PROTEIN 6.9 g/dL (6.4-8.2)
[2020-11-19] MEDS: SODIUM CHLORIDE 0.9% 1,000 ML IV SCH (08:21)
[2020-11-19 14:33] VITALS: BP 133/76
[2020-11-19] MEDS ORDERED: DAPTOMYCIN 750 MG in SODIUM CHLORIDE 0.9% 100 ML IV SCH (15:00)
[2020-11-19] MEDS ORDERED: MIDAZOLAM 1 MG/ML, 5ML ONE (23:00)
[2020-11-19] MEDS ORDERED: ETOMIDATE 20 MG/10 ML ONE (23:00)
[2020-11-19] MEDS ORDERED: PROPOFOL 10 MG/ML, 100ML IV ONE (23:00)
[2020-11-20] MEDS ORDERED: VANCOMYCIN 2,200 MG in SODIUM CHLORIDE 0.9% 500 ML IV ONE (02:00)
== END 2020-11-19 18:18 | disposition left against medical advice (07) | DRG 539 ==
LOC: ED 14:53 → EDIP 17:44 → 3N 19:30
PROVIDERS: ADMIT Internal Medicine; ATTEND Internal Medicine
DX: M86.672 Other chronic osteomyelitis, left ankle and foot (principal); N17.0 Acute kidney failure with tubular necrosis; F22 Delusional disorders; G62.1 Alcoholic polyneuropathy; I10 Essential (primary) hypertension; Z53.29 Procedure and treatment not carried out because of patient's decision for other reasons; F29 Unspecified psychosis not due to a substance or known physiological condition; G62.9 Polyneuropathy, unspecified; Z79.899 Other long term (current) drug therapy; Z87.891 Personal history of nicotine dependence; Z91.19 Patient's noncompliance with other medical treatment and regimen; Z89.422 Acquired absence of other left toe(s); Z80.3 Family history of malignant neoplasm of breast; Z59.0 Homelessness; B95.62 Methicillin resistant Staphylococcus aureus infection as the cause of diseases classified elsewhere
CPT/HCPCS: 36415; 73630; 99285; J3370; 80048; 80053; 80202; 82040; 83735; 85025; G0378; J0878; J1644; J2250; J2704; J2997; J7030; J7040

== ENCOUNTER 2021-01-24 11:53 | Emergency (ER) | payer MEDICAID ==
[~2021-01-24] VITALS: Ht 188 cm; Wt 111.9 kg
--- NOTE | 2021-01-24 12:37 | NUR ---
office runner note: Pt to room from lobby via wheelchair.
--- NOTE | 2021-01-24 13:18 | NUR ---
PT SITTING UP IN BED, RESPIRATIONS EVEN AND UNLABORED ON RA. NAD NOTED AT THIS TIME.
--- NOTE | 2021-01-24 13:34 | NUR ---
REPORT RECEIVED FROM PILAR JACKSON, CARE ASSUMED AT THIS TIME.
[2021-01-24 13:49] LABS: BASOPHILS % (AUTO) 0 % (0-1); EOSINOPHILS % (AUTO) 2 % (1-7); LYMPHOCYTES % (AUTO) 27 % (22-44); MEAN CORPUSCULAR HEMOGLOBIN 27.9 pg (27.5-34.5); MEAN CORPUSCULAR HGB CONC 33.4 g/dL (33.2-36.2); MEAN PLATELET VOLUME 7.5 fL (7.4-10.4); MONOCYTES % (AUTO) 8 % (2-9); NEUTROPHILS % (AUTO) 63 % (42-75); PLATELET COUNT 250 x10^3/uL (130-400); RED BLOOD COUNT 4.34 x10^6/uL (4.38-5.82); RED CELL DISTRIBUTION WIDTH 13.2 % (9.4-14.8)
[2021-01-24 13:59] LABS: ALBUMIN 3.3 g/dL (3.4-5.0); ANION GAP 7 mmol/L (5-15); CALCIUM 8.7 mg/dL (8.5-10.1); CHLORIDE 106 mmol/L (98-107); CREATININE 1.68 mg/dL (0.7-1.3)
[2021-01-24 14:02] LABS: SALICYLATE LEVEL < 1.7 mg/dL (2.8-20.0)
--- NOTE | 2021-01-24 14:14 | NUR ---
PT RESTING ON GURNEY, A&O, RESPS EVEN AND UNLABORED. SINUS KENDRA ON GERICARE AIDE WITH NO ECTOPY. NO TREMORS NOTED AT THIS TIME. PT AWAITING HEAD CT AND DISPO.
--- NOTE | 2021-01-24 15:15 | NUR ---
PT GIVEN URINAL TO VOID, 500ML CLEAR YELLOW URINE VOIDED. PT A&O, RESPS EVEN AND UNLABORED, NADN.
--- NOTE | 2021-01-24 16:16 | NUR ---
PT AMBULATED WITH MD, GAIT STEADY AND UNASSISTED. PT A&O, RESPS EVEN AND UNLABORED, NO COMPLAINT. AWAITING FURTHER ORDERS AT THIS TIME.
[2021-01-24 16:17] VITALS: BP 134/74
--- NOTE | 2021-01-24 16:59 | NUR ---
dc orders received, pt left department without waiting for dc paperwork. .pt a&o, resps even and unlabored, nadn at discharge.
== END 2021-01-24 17:00 | disposition home or self-care (01) ==
LOC: ED 11:59
DX: T43.591A Poisoning by other antipsychotics and neuroleptics, accidental (unintentional), initial encounter (principal); M19.90 Unspecified osteoarthritis, unspecified site; Z87.891 Personal history of nicotine dependence; Y92.89 Other specified places as the place of occurrence of the external cause
CPT/HCPCS: 36415; 70450; 80048; 80299; 80329; 82040; 85025; 99284; 99285; G0480